=== PATIENT | male | born 1955 | race Caucasian/White ===

== ENCOUNTER 2020-10-20 17:10 | Emergency (ER) | payer MEDICARE, MEDICAID ==
[~2020-10-20] VITALS: Ht 160 cm; Wt 72.7 kg
[2020-10-20] MEDS ORDERED: LISI20TA28 PO (19:45)
[2020-10-20] MEDS ORDERED: lisinopril 10 MG tablet PO ONE (19:45)
[2020-10-20 20:03] VITALS: BP 207/120
== END 2020-10-20 20:04 | disposition home or self-care (01) ==
LOC: ER 17:11
DX: I10 Essential (primary) hypertension (principal); Z88.8 Allergy status to other drugs, medicaments and biological substances; Z79.899 Other long term (current) drug therapy
CPT/HCPCS: 99283